=== PATIENT | female | born 1995 | race Caucasian/White ===

== ENCOUNTER 2020-04-23 23:14 | Observation (INO) | payer MEDICAID, SELFPAY ==
--- NOTE | ~2020-04-23 | MR_ITS ---
EXAMINATION: MR abdomen wo con INDICATION: Right lower quadrant pain and leukocytosis during third trimester TECHNIQUE: Coronal SSFSE ARC, Coronal 2D FIESTA Fat Sat, Sagittal SSFSE Fat Sat ARC, Sagittal SD FIES TA Fat Sat, Axial 3D DualEcho, Axial LAVA, Axial STIR, Axial 2D FIESTA Fat Sat, Axial SSFSE ARC COMPARISON: None FINDINGS: The appendix is normal in appearance and measures up to 5 mm. There is no free fluid in the pelvis. There are no dilated loops of bowel. The visualized portions of the left kidney, liver, and spleen are unremarkable. There is decreased cortical T2 signal intensity posteriorly in the right kid kj upper pole of unclear significance. The placenta has a normal appearance without evidence of abru ption or hemorrhage. No definite abnormality is seen with limited evaluation of the fetus. IMPRESSION: 1. Normal appendix. 2. Decreased cortical T2 signal intensity in the upper pole of the right kidney of unclear significan ce. Reviewed, dictated and finalized at location A. IMPRESSION: 1. Normal appendix. 2. Decreased cortical T2 signal intensity in the upper pole of the right kidney of unclear significance.
--- NOTE | ~2020-04-23 | US_ITS ---
EXAMINATION: US OB follow up w BPP EXAM DATE: 04/24/2020 09:45 INDICATION: Abdominal pain. . 3rd trimester. TECHNIQUE: Pelvic obstetrical transabdominal sonogram was performed by a technologist. There are mu ltiple grayscale and Doppler images available for interpretation. There are no earlier studies of th is gestation for comparison. FINDINGS: There is a single fetus identified in vertex presentation with a heart rate of 130 beats pe r minute. The placenta is located in the anterior position. There is no sonographic evidence of retr oplacental hemorrhage identified. The amniotic fluid index is 12.5 centimeters, which is normal. BIOPHYSICAL PROFILE (performed by the technologist) breathing (30 sec sustained breathing in 30 minutes): 2 out of 2 movement (3 gross body movements in 30 minutes): 2 out of 2 tone (one episode of avtibwv-rtpezomga-xvapghi limb movement): 2 out of 2 Amniotic fluid pocket (2 cm): 2 out of 2 Total score: 8 out of 8 IMPRESSION: 1. Single fetus with heart rate of 130 bpm. 2. Normal biophysical profile score of 8 out of 8. Reviewed, dictated and finalized at location A.
--- NOTE | ~2020-04-23 | US_ITS ---
EXAMINATION: US pelvic limited EXAM DATE: 04/24/2020 10:25 INDICATION: Right upper quadrant pain. TECHNIQUE: Multiple grayscale and Doppler images of the pelvis, right lower quadrant were obtained (b y a technologist who performed the scan) and subsequently reviewed. FINDINGS: Scanning in the pelvis, and right lower quadrant both anteriorly and laterally demonstrated no focal sonographic abnormality. Appendix was searched for but not visualized on this exam. Please note that normal appendix is not expected to be visualized by ultrasound. Sometimes an abnormal appendix can be visualized. IMPRESSION: 1. Unremarkable ultrasound exam. Reviewed, dictated and finalized at location A.
[2020-04-23 23:20] VITALS: BP 108/70; PULSE 85; RESP 18; TEMP 36.8; O2SAT 100
--- NOTE | 2020-04-23 23:33 | ED.GENADULT ---
HPI - General Adult General Chief complaint: Headache Stated complaint: du, dizziness Time Seen by Provider: 04/23/20 23:22 Source: RN notes reviewed History of Present Illness HPI narrative: Patient presents emergency department from home for headache. Patient says for the past 2 days she has had a headache nausea and rhinorrhea. Patient states she is presently 32 weeks and followed by [facility] for her . States that over the past 2 days she has been having some intermittent lower abdominal pain described as cramping. Patient states that she was seen by OB 2 days ago and was noted to have high blood pressure at that time. She denies any fevers or chills sore throat cough vomiting vaginal bleeding or any other symptoms at this time. States she is taken no medications today for her symptoms. Patient does states she has a history of migraine headaches Related Data Home Medications Medication Instructions Recorded Confirmed PN cmb#95-ferrous fumarate-FA 1 tablet PO DAILY 04/24/20 04/24/20 [] Allergies Allergy/AdvReac Type Severity Reaction Status Date / Time No Known Allergies Allergy Verified 10/29/19 18:10 Review of Systems Review of Systems: Narrative: Gen.: Denies fevers or chills Eyes: Denies eye pain or visual change ENT: Reports rhinorrhea, denies sore throat Respiratory: Denies shortness of breath or cough CV: Denies chest pain or palpitations GI: Reports some intermittent lower abdominal pain, reports nausea denies any vomiting or diarrhea reports , denies vaginal bleeding Musculoskeletal: Denies back pain or muscle pain Neuro: Denies numbness, tingling, weakness or focal weakness, reports headache Skin: Denies rash Except as documented, all other systems reviewed and negative [facility] Past Medical History Medical History Fracture of both arms Migraines Surgical History Surgical History (Updated 10/31/19 @ 18:30 by Tiffanie Montanez NP) History of tonsillectomy Social History Social History Smoking packs per day: 0.5 Smoking cigarettes per day: 10.0 Years smoked: 5 Smoking pack-years: 2.50 Smoking status: Current every day smoker Exam Narrative: Exam Narrative: APPEARANCE: No acute distress, nontoxic, resting in bed EYES: EOMI HEENT: Normocephalic, atraumatic, bilateral turbinates boggy, oral mucosa moist, no erythema exudate posterior pharynx RESPIRATORY: No respiratory distress Clear to auscultation bilaterally with no rhonchi wheezing or rales. CARDIOVASCULAR: Regular rate and rhythm without murmurs rubs or gallops. ABDOMINAL: Gravid uterus palpated, nontender to palpation, no rebound or guarding MUSCULOSKELETAl: Moves all extremities. No clubbing, cyanosis or edema. NEURO: Awake and alert. Following commands, speech normal, no focal deficits SKIN:: Warm, dry. No rashes lesions or abrasions PSYCHIATRIC: Normal affect/mood, Course Course Emergency Course: Patient states headache is improved but abdominal pain is worsening on the right side. Described as cramping All discussed with Dr. Gonzalez presentation work-up. This time agrees with plan for patient to go to OB for further evaluation With patient plan for evaluation in OB Vital Signs Vital signs: Vital Signs Temperature 98.2 F 04/23/20 23:20 Pulse Rate 85 04/23/20 23:20 Respiratory Rate 18 04/23/20 23:20 Blood Pressure 108/70 04/23/20 23:20 Pulse Oximetry 100 04/23/20 23:20 Temperature 97.9 F 04/24/20 02:30 Pulse Rate 81 04/24/20 02:00 Respiratory Rate 18 04/24/20 00:50 Blood Pressure 103/59 L 04/24/20 02:00 Pulse Oximetry 97 04/24/20 00:50 Medical Decision Making MDM Narrative Medical decision making narrative: Patient's headache was not sudden or maximal in onset. There are no focal deficits on exam. Subarachnoid hemor
[2020-04-23] MEDS: SODIUM CHLORIDE 0.9% IV 1,000 ML 999 ML IV CONT (23:50)
[2020-04-24] VITALS (10 sets, daily range): BP systolic 102–110; BP diastolic 58–67; PULSE 72–90; RESP 18; TEMP 36.4–36.8; O2SAT 97; BMI 27.6
[2020-04-24] LABS: Basophils Absolute Auto 0.1 K/mm3 (0.0-0.1); Basophils Percent Auto 0.4 % (0.2-1.2); Eosinophils Absolute Auto 0.2 K/mm3 (0-0.3); Eosinophils Percent Auto 1.2 % (0-4.4); Hematocrit 32.9 % (37.0-47.0); Hemoglobin 11.4 g/dL (12.0-15.0); Immature Granulocyte Absolute 0.18 K/mm3 (0.00-0.031); Immature Granulocyte Percent A 1.1 % (0-0.5); Lymphocytes Absolute Auto 3.24 K/mm3 (0.9-3.2); Lymphocytes Percent Auto 19.3 % (18.3-44.2); Mean Corpuscular HGB Conc 34.7 g/dl (32-36); Mean Corpuscular Hemoglobin 33.5 pg (26-34); Mean Corpuscular Volume 96.8 fl (80-100); Mean Platelet Volume 9.7 fl (7.4-10.4); Monocytes Absolute Auto 1.4 K/mm3 (0.1-0.6); Monocytes Percent Auto 8.3 % (2.6-8.5); Neutrophils Absolute Auto 11.7 K/mm3 (1.3-6.7); Neutrophils Percent Auto 69.7 % (45.5-73.1); Platelet Count Result 367 k/mm3 (150-375); Red Cell Distribution Width 12.4 % (11.5-14.5); White Blood Count 16.8 K/mm3 (4.5-10.0)
[2020-04-24 00:09] LABS: Alanine Aminotransferase 11 U/L (4-35); Albumin Level 3.7 g/dL (3.5-5.1); Alkaline Phosphatase 68 U/L (38-126); Aspartate Amino Transferase 16 U/L (14-36); Bilirubin,Total 0.2 mg/dL (0.2-1.3); Blood Urea Nitrogen 6 mg/dL (7-17); Calcium 8.6 mg/dL (8.4-10.2); Carbon Dioxide 22 mmol/L (22-30); Chloride 106 mmol/L (98-107); Estimated Glomerular Filt Rate > 60; Glucose 106 mg/dL (65-105); Potassium 3.3 mmol/L (3.4-5.0); Sodium 132 mmol/L (137-145)
[2020-04-24 00:10] LABS: Add Urine Microscopic? YES; Appearance Urine Clear (Clear); Bacteria Urine 1+ /hpf; Bilirubin Urine Negative (Negative); Blood Urine Negative (Negative); Color Urine Yellow (Yellow); Glucose Urine UA 1+ mg/dL (Negative); Ketones Urine Trace mg/dL (Negative); Leukocyte Esterase Ur Trace LEU/UL (Negative); Mucus Urine Heavy /lpf; Nitrate Urine Negative (Negative); Protein Urine 1+ mg/dL (Negative); Specific Grav Ur 1.026 (1.001-1.035); Squamous Epithelial Cell Urine Occasional /hpf (Few)
--- NOTE | 2020-04-24 01:13 | OBADM ---
This patient, Vini Jamison, admitted to the OB room OB Post 116 for observation. Patient/family oriented to hospital policies and general routines including ID bracelet, bed and alarms, visiting hours, pain management, procedures, bathroom and other care routines, personal items, smoking policy, room service/diet, and visiting hours. Patient/Family are encouraged to report perceived risks to care and to ask questions if they do not understand what they are told or what they should do. Pt to room 116 via w/c from ED. Pt c/o abd pain to RLQ for past 45 minutes. Pt came to ED for headache and dizziness/lightheadedness for few days. Pt denies leaking or bleeding. Pt feeling movements.
--- NOTE | 2020-04-24 02:30 | PC.NURSE ---
Pt informed of plan of care. Pt verbalized understanding.
[2020-04-24 06:08] LABS: Basophils Absolute Auto 0.1 K/mm3 (0.0-0.1); Basophils Percent Auto 0.6 % (0.2-1.2); Eosinophils Absolute Auto 0.3 K/mm3 (0-0.3); Eosinophils Percent Auto 1.9 % (0-4.4); Hematocrit 30.3 % (37.0-47.0); Hemoglobin 10.4 g/dL (12.0-15.0); Immature Granulocyte Absolute 0.14 K/mm3 (0.00-0.031); Immature Granulocyte Percent A 0.8 % (0-0.5); Lymphocytes Absolute Auto 3.98 K/mm3 (0.9-3.2); Lymphocytes Percent Auto 22.5 % (18.3-44.2); Mean Corpuscular HGB Conc 34.3 g/dl (32-36); Mean Corpuscular Hemoglobin 33.4 pg (26-34); Mean Corpuscular Volume 97.4 fl (80-100); Mean Platelet Volume 9.7 fl (7.4-10.4); Monocytes Absolute Auto 1.6 K/mm3 (0.1-0.6); Monocytes Percent Auto 8.8 % (2.6-8.5); Neutrophils Absolute Auto 11.6 K/mm3 (1.3-6.7); Neutrophils Percent Auto 65.4 % (45.5-73.1); Platelet Count Result 305 k/mm3 (150-375); Red Blood Count 3.11 M/mm3 (4.2-5.4); Red Cell Distribution Width 12.4 % (11.5-14.5); White Blood Count 17.7 K/mm3 (4.5-10.0)
--- NOTE | 2020-04-24 08:54 | PM.IMHP ---
H&P: HPI History of Present Illness Chief complaint: du, dizziness Narrative: Vini Jamison is a 25 year old female who presented to the ER last night with c/o headache, nausea, and right side abdominal cramping. Pt states these symptoms have been present for 2 days. Denies vomiting or diarrhea. Review of Systems Review of Systems: All systems reviewed & are unremarkable except as noted in HPI and below PMFSH Past Medical History Medical History Fracture of both arms Migraines Surgical History Surgical History History of tonsillectomy Social History Social History Smoking packs per day: 0.5 Smoking cigarettes per day: 10.0 Years smoked: 5 Smoking pack-years: 2.50 Smoking status: Current every day smoker Meds Home Medications and Allergies Home Medications Medication Instructions Recorded Confirmed Type PNV cmb#95-ferrous fumarate-FA 1 tablet PO DAILY 04/24/20 04/24/20 History [] Allergies Allergy/AdvReac Type Severity Reaction Status Date / Time No Known Allergies Allergy Verified 10/29/19 18:10 Vital Signs Vital Signs - 24 hr 04/23/20 23:20 04/24/20 00:50 04/24/20 01:08 Temperature 98.2 F Pulse Rate 85 78 80 Respiratory Rate 18 18 Blood Pressure 108/70 104/62 110/64 Pulse Oximetry 100 97 04/24/20 01:21 04/24/20 02:00 04/24/20 02:30 Temperature 97.6 F 97.9 F Pulse Rate 81 Respiratory Rate Blood Pressure 103/59 L Pulse Oximetry 04/24/20 05:56 04/24/20 08:23 Temperature 97.6 F Pulse Rate 90 Respiratory Rate Blood Pressure 102/66 Pulse Oximetry Exam Const: General: cooperative, no acute distress and alert Resp: Effort & Inspection: normal respiratory effort and able to speak in complete sentences Auscultation: clear to auscultation bilaterally GI: Inspection: normal to inspection (Gravid) GI Palp: Yes abdominal tenderness (RLQ tender with palpation) and Yes Rebound tenderness present : Manual OB Exam: Deferred manual OB exam Skin: General skin exam: normal color Neuro: General: oriented to person, oriented to place and oriented to time H&P: Results Labs Labs: Short CBC 04/23/20 04/24/20 Range/Units 23:47 06:02 WBC 16.8 H 17.7 H (4.5-10.0) K/mm3 Hgb 11.4 L 10.4 L (12.0-15.0) g/dL Hct 32.9 L 30.3 L (37.0-47.0) % Plt Count 367 305 (150-375) k/mm3 BMP 04/23/20 23:47 Sodium 132 L Potassium 3.3 L Chloride 106 Carbon Dioxide 22 BUN 6 L Creatinine 0.40 L Glucose 106 H Calcium 8.6 Liver Function 04/23/20 Range/Units 23:47 Total Bilirubin 0.2 (0.2-1.3) mg/dL AST 16 (14-36) U/L ALT 11 (4-35) U/L Alkaline Phosphatase 68 (38-126) U/L Albumin 3.7 (3.5-5.1) g/dL Urine 04/23/20 Range/Units 23:47 Urine Color Yellow (Yellow) Urine Appearance Clear (Clear) Urine pH 6.0 (5.0-9.0) Ur Specific [place] 1.026 (1.001-1.035) Urine Protein 1+ H (Negative) mg/dL Urine Glucose (UA) 1+ H (Negative) mg/dL Assessment and Plan Additional Plan 25 y/o 32 weeks with lower right abdominal tenderness. She is afebrile. WBC initially elevated and did increase over the last [address] . [address] with Dr Gonzalez and we have agreed to a surgical consult. H/A has resolved. Will remain NPO at this time.
--- NOTE | 2020-04-24 13:45 | PM.CNGS ---
Assessment and Plan Assessment and plan (1) Abdominal pain: Code(s): R10.9 - Unspecified abdominal pain Status: Acute Assessment and Plan: will get MR, as recommended by radiology, for further review, exam equivocal (2) : Qualifiers: Weeks of gestation: less than 8 weeks Qualified Code(s): Z3A.01 - Less than 8 weeks gestation of Code(s): Z34.90 - Encounter for supervision of normal , unspecified, unspecified trimester Status: Acute Assessment and Plan: 32 weeks, normal findings, mgmt per OB History of Present Illness Consult details Consult date: 04/24/20 Reason for consult: abdominal pain Requesting physician: Rod Gonzalez MD Narrative: Patient is a 25-year-old female, currently 32 weeks , presenting with a 1 day history of right lower quadrant abdominal pain. Patient reports that the pain is dull and constant, measuring anywhere from 2-4 in intensity out of 10. Patient denies any other associated symptoms, including fevers and chills, anorexia, nausea and vomiting. Patient denies any vaginal bleeding or discharge. Review of Systems Constitutional: Constitutional: Denies weakness Eyes: Eyes: Reports no additional eye complaints and Denies loss of vision ENT: Reports Normal hearing present, Denies dysphagia, Denies headache(s), Denies hearing loss and Denies sore throat Cardiovascular: Cardiovascular: Denies chest pain, Denies syncope, Denies irregular heart rhythm, Denies leg edema and Denies dyspnea Respiratory: Respiratory: Denies cough and Denies dyspnea Gastrointestinal: Gastrointestinal: Reports abdominal pain, Denies bloating, Denies change in bowel habits, Denies change in stool character, Denies constipation, Denies dysphagia, Denies heartburn, Denies diarrhea, Denies nausea and Denies vomiting Genitourinary: Genitourinary: Denies urinary frequency, Denies dysuria and Denies urinary urgency Musculoskeletal: Musculoskeletal: Denies myalgias, Denies arthralgias and Denies muscle cramps Integumentary/Breasts: Skin/Breast: Denies non-healing lesions and Denies rash Neurologic: Denies syncope, Denies headache(s) and Denies loss of vision Endocrine: Endocrine: Denies change in body appearance and Denies fatigue Hematologic/Lymphatic: Hematologic/Lymphatic: Denies easy bleeding, Denies easy bruising and Denies lymphadenopathy PMFSH Past Medical History Medical History Fracture of both arms Migraines Surgical History Surgical History History of tonsillectomy Social History Social History Smoking packs per day: 0.5 Smoking cigarettes per day: 10.0 Years smoked: 5 Smoking pack-years: 2.50 Smoking status: Current every day smoker Meds Home Medications and Allergies Home Medications Medication Instructions Recorded Confirmed Type PNV cmb#95-ferrous fumarate-FA 1 tablet PO DAILY 04/24/20 04/24/20 History [] Allergies Allergy/AdvReac Type Severity Reaction Status Date / Time No Known Allergies Allergy Verified 10/29/19 18:10 Vital Signs Vital Signs - 24 hr 04/23/20 23:20 04/24/20 00:50 04/24/20 01:08 Temperature 36.8 C Pulse Rate 85 78 80 Respiratory Rate 18 18 Blood Pressure 108/70 104/62 110/64 Pulse Oximetry 100 97 04/24/20 01:21 04/24/20 02:00 04/24/20 02:30 Temperature 36.4 C 36.6 C Pulse Rate 81 Respiratory Rate Blood Pressure 103/59 L Pulse Oximetry 04/24/20 05:56 04/24/20 08:23 04/24/20 11:58 Temperature 36.4 C 36.6 C 36.7 C Pulse Rate 90 79 Respiratory Rate Blood Pressure 102/66 104/58 L Pulse Oximetry Exam Const: General: cooperative, no acute distress and well developed Orientation/consciousness: patient oriented x3 HENMT: Head: normocephalic and atraum
[2020-04-24 16:23] LABS: Hematocrit 33.1 % (37.0-47.0); Hemoglobin 11.3 g/dL (12.0-15.0); Mean Corpuscular HGB Conc 34.1 g/dl (32-36); Mean Corpuscular Hemoglobin 33.6 pg (26-34); Mean Corpuscular Volume 98.5 fl (80-100); Mean Platelet Volume 9.6 fl (7.4-10.4); Platelet Count Result 328 k/mm3 (150-375); Red Blood Count 3.36 M/mm3 (4.2-5.4); Red Cell Distribution Width 12.6 % (11.5-14.5); White Blood Count 16.3 K/mm3 (4.5-10.0)
--- NOTE | 2020-05-21 21:35 | PM.OBTRLD ---
OB - Triage/Final Diagnosis Evaluation Laboratory results: Laboratory Tests 04/23/20 04/23/20 04/23/20 23:47 23:47 23:47 WBC 16.8 H RBC 3.40 L Hgb 11.4 L Hct 32.9 L MCV 96.8 MCH 33.5 MCHC 34.7 RDW 12.4 Plt Count 367 MPV 9.7 Immature Gran % (Auto) 1.1 H Neut % (Auto) 69.7 Lymph % (Auto) 19.3 [place] % (Auto) 8.3 Eos % (Auto) 1.2 Baso % (Auto) 0.4 Lymph # (Auto) 3.24 H [place] # (Auto) 1.4 H Eos # (Auto) 0.2 Baso # (Auto) 0.1 Abs Immat Gran (auto) 0.18 H Absolute Neuts (auto) 11.7 H Absolute Nucleated RBC 0.0 Nucleated RBC % 0.0 Sodium 132 L Potassium 3.3 L Chloride 106 Carbon Dioxide 22 BUN 6 L Creatinine 0.40 L Estim Creat Clear Calc Not Reportable Estimated GFR > 60 Glucose 106 H Calcium 8.6 Total Bilirubin 0.2 AST 16 ALT 11 Alkaline Phosphatase 68 Total Protein 7.0 Albumin 3.7 Urine Color Yellow Urine Appearance Clear Urine pH 6.0 Ur Specific [place] 1.026 Urine Protein 1+ H Urine Glucose (UA) 1+ H Urine Ketones Trace Ur Blood (Man) Negative Urine Nitrate Negative Urine Bilirubin Negative Urine Urobilinogen 2.0 H Leukocyte Esterase Rfl Trace H Urine RBC 3-5 H Urine WBC 10-15 H Ur Squamous Epith Cells Occasional Urine Bacteria 1+ H Hyaline Casts 1-2 Urine Mucus Heavy H 04/24/20 04/24/20 06:02 16:16 WBC 17.7 H 16.3 H RBC 3.11 L 3.36 L Hgb 10.4 L 11.3 L Hct 30.3 L 33.1 L MCV 97.4 98.5 MCH 33.4 33.6 MCHC 34.3 34.1 RDW 12.4 12.6 Plt Count 305 328 MPV 9.7 9.6 Immature Gran % (Auto) 0.8 H Neut % (Auto) 65.4 Lymph % (Auto) 22.5 [place] % (Auto) 8.8 H Eos % (Auto) 1.9 Baso % (Auto) 0.6 Lymph # (Auto) 3.98 H [place] # (Auto) 1.6 H Eos # (Auto) 0.3 Baso # (Auto) 0.1 Abs Immat Gran (auto) 0.14 H Absolute Neuts (auto) 11.6 H Absolute Nucleated RBC 0.0 Nucleated RBC % 0.0 Sodium Potassium Chloride Carbon Dioxide BUN Creatinine Estim Creat Clear Calc Estimated GFR Glucose Calcium Total Bilirubin AST ALT Alkaline Phosphatase Total Protein Albumin Urine Color Urine Appearance Urine pH Ur Specific [place] Urine Protein Urine Glucose (UA) Urine Ketones Ur Blood (Man) Urine Nitrate Urine Bilirubin Urine Urobilinogen Leukocyte Esterase Rfl Urine RBC Urine WBC Ur Squamous Epith Cells Urine Bacteria Hyaline Casts Urine Mucus Final Diagnosis (1) Abdominal pain: Code(s): R10.9 - Unspecified abdominal pain Status: Acute
--- NOTE | 2020-06-16 09:48 | P.DS_ITS ---
DS: Admitting Diagnosis Admitting Diagnosis Admitting Diagnosis: du, dizziness, rlq pain DS: Discharge Diagnosis Discharge Diagnosis (1) Abdominal pain: Code(s): R10.9 - Unspecified abdominal pain Status: Acute OB - DS: Summary Hospital Course Time spent discussing smoking cessation with patient: more than 10 minutes OB Procedures : None OB Procedures Intrapartum: Other OB Procedures: : None Status at Discharge Functional status at discharge: independent ambulation Time Spent with Patient Time attestation: Total time spent providing and/or coordinating discharge services: Exam Const: General: comfortable and no acute distress Psych: Appearance: grossly normal Affect: normal affect Thought content: Yes Normal thought content present Judgement: Good judgement present (Psych) Discharge Plan Discharge Attending physician on discharge: Shani Berg Consulting providers: Nathalia Borjas ; Shani Berg ; Mau Alicea ; Patrice Hull Discharging Clinician: Shani Berg Anticipated Discharge Date/Time: 04/24/20 17:30 Patient Disposition: Home, Self-Care Activity: as tolerated Diet: as tolerated Stand Alone Forms: General Discharge Information, Work/School Release IP Follow-up/Referrals: Shani Berg, CNM [Certified Nurse Registered Respiratory Technician] - Discharge Medications: Continued PNV cmb#95-ferrous fumarate-FA [] 28 mg iron- 800 mcg Tablet 1 tablet PO DAILY RF: 0 No Action ibuprofen 600 mg Tablet 600 mg PO Q6H PRN (Reason: Cramping) Qty: 60 RF: 0 Date of admission: 04/24/20 00:56 Primary Care Provider: PHYSICIAN,BORDER INSPECTOR Admitting Provider: Rod Gonzalez Discharge Date/Time: 04/24/20 17:30 Attending physician on admission: Rod Gonzalez Condition: Stable
== END 2020-04-24 17:30 | disposition home or self-care (01) ==
LOC: ANHED 04-24 00:55 → ANHOBPP 04-24 00:56
PROVIDERS: Advanced Practice Midwife; Admitting Provider Obstetrics & Gynecology; Emergency Provider Emergency Medicine; Visit Provider Obstetrics & Gynecology
DX: O26.893 Other specified pregnancy related conditions, third trimester (principal); R10.813 Right lower quadrant abdominal tenderness; R51 Headache; O99.333 Smoking (tobacco) complicating pregnancy, third trimester; F17.210 Nicotine dependence, cigarettes, uncomplicated; Z3A.32 32 weeks gestation of pregnancy
CPT/HCPCS: 36415; 74181; 76816; 76819; 76857; 80053; 81001; 85025; 85027; 87086; 96360; 96361; 96374; 99285; G0378; G0379; J0131; J7030

== ENCOUNTER 2020-06-07 06:12 | Inpatient (IN) | payer MEDICAID, SELFPAY ==
[2020-06-07] VITALS (148 sets, daily range): BP systolic 64–135; BP diastolic 23–90; PULSE 56–173; TEMP 36.2–36.8; O2SAT 91–100
[2020-06-07 07:15] LABS: Basophils Absolute Auto 0.1 K/mm3 (0.0-0.1); Basophils Percent Auto 0.5 % (0.2-1.2); Eosinophils Absolute Auto 0.3 K/mm3 (0-0.3); Eosinophils Percent Auto 1.5 % (0-4.4); Hematocrit 32.2 % (37.0-47.0); Hemoglobin 11.1 g/dL (12.0-15.0); Immature Granulocyte Absolute 0.35 K/mm3 (0.00-0.031); Immature Granulocyte Percent A 1.9 % (0-0.5); Lymphocytes Absolute Auto 3.38 K/mm3 (0.9-3.2); Lymphocytes Percent Auto 18.2 % (18.3-44.2); Mean Corpuscular HGB Conc 34.5 g/dl (32-36); Mean Corpuscular Hemoglobin 33.1 pg (26-34); Mean Corpuscular Volume 96.1 fl (80-100); Mean Platelet Volume 10.2 fl (7.4-10.4); Monocytes Absolute Auto 1.8 K/mm3 (0.1-0.6); Monocytes Percent Auto 9.7 % (2.6-8.5); Neutrophils Absolute Auto 12.7 K/mm3 (1.3-6.7); Neutrophils Percent Auto 68.2 % (45.5-73.1); Platelet Count Result 350 k/mm3 (150-375); Red Blood Count 3.35 M/mm3 (4.2-5.4); White Blood Count 18.6 K/mm3 (4.5-10.0)
--- NOTE | 2020-06-07 07:22 | WPDHPUPDATE1 ---
History and Physical Update Update Date/Time: 06/07/20 07:22 This patient is a 25-year-old 1 at 39 weeks gestation presents for elective induction of labor. Artificial rupture of membranes was performed. There is clear fluid. Her cervix is 2/ 20%/ -3. She has reassuring heart tones. History and Physical has been reviewed, including an updated exam of the patient. There are NO changes in the patient's condition. Risks, benefits, and alternatives have been discussed and questions answered. Patient agrees to proceed with procedure.
--- NOTE | 2020-06-07 07:26 | LDADM ---
This patient, Vini Jamison, was admitted to Labor/Delivery/Recovery 105 on 06/07/20 at 06:12. Plans for labor, pain management and were discussed with patient. Patient/family oriented to hospital policies and general routines including ID bracelet, bed and alarms, visiting hours, pain management, procedures, bathroom and other care routines, personal items, smoking policy, room service/diet and guest tray routines, security routines, and visiting hours. Patient/Family are encouraged to report perceived risks to care and to ask questions if they do not understand what they are told or what they should do. See OBIX for further documentation.
[2020-06-07] MEDS: LACTATED RINGERS 1,000 ML 125 ML IV CONT ×2 (07:58→20:13)
[2020-06-07] MEDS: OXYTOCIN 30 UNITS/NS 500 ML 30 UNITS/500 ML BAG 6 UNITS IV CONT (07:59)
--- NOTE | 2020-06-07 09:04 | P.PNAN_ITS ---
Anes - Eval Pre Procedure Procedure: labor epidural Date/Time: 06/07/20 09:04 Surgeon: Lisa Preop Diagnosis: Pain during labor Pre Op Diagnosis: Induction of Labor Patient Data Age: 25 Gender: F Height: Weight: Last Vital Signs Pulse 81 06/07/20 09:01 BP 94/53 L 06/07/20 09:01 Allergies Allergy/AdvReac Type Severity Reaction Status Date / Time No Known Allergies Allergy Verified 10/29/19 18:10 Home Medications Medication Instructions Recorded Confirmed Type PNV cmb#95-ferrous fumarate-FA 1 tablet PO DAILY 04/24/20 06/03/20 History [] Laboratory Tests 06/07/20 06/07/20 06/07/20 07:03 07:03 07:03 WBC 18.6 K/mm3 H K/mm3 (4.5-10.0) RBC 3.35 M/mm3 L M/mm3 (4.2-5.4) Hgb 11.1 g/dL L g/dL (12.0-15.0) Hct 32.2 % L % (37.0-47.0) MCV 96.1 fl fl (80-100) MCH 33.1 pg pg (26-34) MCHC 34.5 g/dl g/dl (32-36) RDW 13.0 % % (11.5-14.5) Plt Count 350 k/mm3 k/mm3 (150-375) MPV 10.2 fl fl (7.4-10.4) Immature Gran % (Auto) 1.9 % H % (0-0.5) Neut % (Auto) 68.2 % % (45.5-73.1) Lymph % (Auto) 18.2 % L % (18.3-44.2) [place] % (Auto) 9.7 % H % (2.6-8.5) Eos % (Auto) 1.5 % % (0-4.4) Baso % (Auto) 0.5 % % (0.2-1.2) Lymph # (Auto) 3.38 K/mm3 H K/mm3 (0.9-3.2) [place] # (Auto) 1.8 K/mm3 H K/mm3 (0.1-0.6) Eos # (Auto) 0.3 K/mm3 K/mm3 (0-0.3) Baso # (Auto) 0.1 K/mm3 K/mm3 (0.0-0.1) Abs Immat Gran (auto) 0.35 K/mm3 H K/mm3 (0.00-0.031) Absolute Neuts (auto) 12.7 K/mm3 H K/mm3 (1.3-6.7) Absolute Nucleated RBC 0.0 K/mm3 K/mm3 (0.0-0.012) Nucleated RBC % 0.0 % % (0.0-0.2) RPR Pending Blood Type B Positive Antibody Screen Negative Patient hx anesthesia problems: none Family hx anesthesia problems: none PMFSH Past Medical History Medical History Fracture of both arms Migraines Surgical History Surgical History History of tonsillectomy Family History Family History Grandparent Thyroid disease Grandparent Diabetes mellitus Social History Social History Smoking packs per day: 0.5 Smoking cigarettes per day: 10.0 Years smoked: 5 Smoking pack-years: 2.50 Smoking status: Current every day smoker Tobacco type: cigarettes Substance use: never Gender identity (if verbalized by the patient): Female Spiritual care concerns: No Exam Day of Procedure 06/07/20 09:04
--- NOTE | 2020-06-07 22:17 | P.PCNOB_ITS ---
OB - Delivery Note Procedure Delivery date: 06/07/20 Procedure: vaginal delivery Induction method: AROM and per pitocin protocol Delivery monitor: external FHT and external uterine Laceration description: Perineal - 1st Degree Delivery repair: vicryl Specimen: No Estimated blood loss (mL): 145 Anesthesia type: Epidural Disposition: other () [place] Baby Date of : 06/07/20 Time of : 22:06 Weeks of gestation at delivery: 39 gender: Female Weight (pounds): 6 Weight (ounces): 8 presentation: vertex position: Right Occiput Anterior Placenta delivery description: Spontaneous cord vessel description: 3 Vessels, Nuchal Cord, Loose, Reduced, Clamped/Cut and Around Body x1 score one minute: 9 score five minutes: 10 Narrative: mother and baby skin to skin in stable condition
[2020-06-07] MEDS: OXYTOCIN 30 UNITS/NS 500 ML 30 UNITS/500 ML BAG 125 UNITS IV CONT (22:27)
[2020-06-08 00:01] VITALS: BP 113/70; PULSE 86
[2020-06-08 00:16] VITALS: BP 111/65; PULSE 79
[2020-06-08] MEDS: BENZOCAINE 20% AER SPR (*SP) 56 GM CAN 1 SPRAY TOPICAL (00:19)
[2020-06-08] MEDS: WITCH HAZEL 40 PADS 1 PAD TOPICAL (00:19)
[2020-06-08] MEDS: IBUPROFEN 600 MG TABLET PO ×2 (00:19→17:15)
--- NOTE | 2020-06-08 00:41 | PC.NURSE ---
This patient, Vini Jamison, was received from Labor and Delivery on 06/08/20 at 0038. Personal belongings list checked and signed. Patient/family oriented to unit policies and routines
[2020-06-08 00:45] VITALS: BP 112/74; PULSE 82; RESP 16; TEMP 37; O2SAT 100
[2020-06-08 05:05] LABS: Hematocrit 28.2 % (37.0-47.0); Hemoglobin 9.6 g/dL (12.0-15.0)
--- NOTE | 2020-06-08 07:52 | PM.OBPNVD ---
OB - PN: Subj Subjective Date/time seen: 06/08/20 07:52 OB - PN: Obj Data Labs CBC & Chem 7: 06/08/20 04:59 Labs: Laboratory Results - last 24 hr 06/07/20 06/08/20 07:03 04:59 Hgb 9.6 L Hct 28.2 L Blood Type B Positive Antibody Screen Negative OB - PN A/P Plan day: 1 Plan: routine care Time Spent With Patient Time: Total time spent is greater than 50% in coordination of care (as documented) at patient's floor/unit and/or counseling patient: Time with patient: less than 15 minutes Review of Systems Review of Systems: All systems reviewed & are unremarkable except as noted in HPI and below Exam Narrative: Exam Narrative: Fundus firm and vaginal flow controlled.
--- NOTE | 2020-06-08 07:55 | WPDANLDPN2 ---
Anes-Prog Note L&D Date/Time: 06/08/20 07:55 Comfortable throughout: labor and delivery Neuraxial method: epidural Epidural/Spinal procedure site: clean & non-tender Neuro status: Neuro function grossly intact. Cardiovascular status: normal Respiratory status: normal Airway patency: baseline Mental status: baseline Post-Op hydration status: normal Vital Signs: Last Vital Signs Temp 37.0 C 06/08/20 00:45 Pulse 82 06/08/20 00:45 Resp 16 06/08/20 00:45 BP 112/74 06/08/20 00:45 Pulse Ox 100 06/08/20 00:45 I/O: Intake & Output 06/07/20 06/07/20 06/08/20 15:59 23:59 07:59 Intake Total 1000 Output Total 93 Balance 1000 -93 Post-procedural complaints: none Patient feedback: Patient satisfied with anesthetic care.
[2020-06-08 08:05] VITALS: BP 100/60; PULSE 76; RESP 16; TEMP 36.6; O2SAT 100
[2020-06-08] MEDS: POLYSACCHARIDE IRON COMPLEX 150 MG CAPSULE PO ×2 (09:07→17:13)
[2020-06-08] MEDS: MULTIVIT/MIN/PREN/FOL AC/IRON TABLET 1 TAB PO (09:07)
[2020-06-08] MEDS: DOCUSATE SODIUM 100 MG CAPSULE PO ×2 (09:07→17:13)
[2020-06-08 09:44] LABS: Rapid Plasma Reagin Non-Reactive (NonReactive)
--- NOTE | 2020-06-08 12:10 | PC.NURSE ---
Consulted with patient, Mother reports she is breast and bottle feeding. Mother states she has difficulties with latching and does not believe is getting enough with and will supplement until her milk is in. Reviewed feeding cues, frequencies, duration of feedings, feeding elimination flow sheet, and signs of adequate intake. Offered assist with next feeding, requested mother to call out for RN/LC assistance with feeding. Instructed feeding should be initiated three hours from start of last feeding or if feeding cues are noted before. Mother voiced understanding of information shared.
[2020-06-08 20:00] VITALS: BP 109/68; PULSE 86; RESP 16; TEMP 36.4; O2SAT 99
--- NOTE | 2020-06-09 07:37 | PM.OBPNVD ---
OB - PN: Subj Subjective Date/time seen: 06/09/20 07:37 Patient comments: no complaints, pain well controlled and other (Lochia similar to menses) [facility] baby status: doing well OB - PN: Obj Data Labs CBC & Chem 7: 06/08/20 04:59 Labs: Laboratory Results - last 24 hr 06/07/20 07:03 RPR Non-reactive OB - PN A/P Plan day: 2 (s/p vaginal delivery, doing well) Plan: routine care, discharge home and other (Follow up in office in 4 weeks) Time Spent With Patient Time: Total time spent is greater than 50% in coordination of care (as documented) at patient's floor/unit and/or counseling patient: Exam Const: General: no acute distress GI: Inspection: other (Fundus firm and nontender below umbilicus) GI Palp: Yes Soft to palpation and No Tenderness to palpation present (GI) Extrem: General: no edema
[2020-06-09] MEDS: DOCUSATE SODIUM 100 MG CAPSULE PO (07:45)
[2020-06-09] MEDS: MULTIVIT/MIN/PREN/FOL AC/IRON TABLET 1 TAB PO (07:45)
[2020-06-09] MEDS: POLYSACCHARIDE IRON COMPLEX 150 MG CAPSULE PO (07:45)
[2020-06-09 07:55] VITALS: BP 102/67; PULSE 73; RESP 18; TEMP 36.8; O2SAT 100
--- NOTE | 2020-06-09 07:59 | PC.NURSE ---
Patient viewed the discharge video Mother & Baby Care, The First Two Weeks . Patient was given the opportunity and encouraged to ask questions. Patient verbalized understanding of information shared and has been given the mother/baby guide for home reference.
--- NOTE | 2020-06-09 11:25 | PC.NURSE ---
11:14-F/U appointment made for 06/10/20 @ 10:00 for mother only. No F/U appointment made for baby since baby will be seen by Dr. Wolf 06/10/20 at 11:00.
--- NOTE | 2020-06-10 07:15 | PM.OBTRLD ---
OB - Triage/Final Diagnosis Evaluation Laboratory results: Laboratory Tests 06/07/20 06/07/20 06/07/20 07:03 07:03 07:03 WBC 18.6 H RBC 3.35 L Hgb 11.1 L Hct 32.2 L MCV 96.1 MCH 33.1 MCHC 34.5 RDW 13.0 Plt Count 350 MPV 10.2 Immature Gran % (Auto) 1.9 H Neut % (Auto) 68.2 Lymph % (Auto) 18.2 L [place] % (Auto) 9.7 H Eos % (Auto) 1.5 Baso % (Auto) 0.5 Lymph # (Auto) 3.38 H [place] # (Auto) 1.8 H Eos # (Auto) 0.3 Baso # (Auto) 0.1 Abs Immat Gran (auto) 0.35 H Absolute Neuts (auto) 12.7 H Absolute Nucleated RBC 0.0 Nucleated RBC % 0.0 RPR Non-reactive Blood Type B Positive Antibody Screen Negative 06/08/20 04:59 WBC RBC Hgb 9.6 L Hct 28.2 L MCV MCH MCHC RDW Plt Count MPV Immature Gran % (Auto) Neut % (Auto) Lymph % (Auto) [place] % (Auto) Eos % (Auto) Baso % (Auto) Lymph # (Auto) [place] # (Auto) Eos # (Auto) Baso # (Auto) Abs Immat Gran (auto) Absolute Neuts (auto) Absolute Nucleated RBC Nucleated RBC % RPR Blood Type Antibody Screen Vital signs: Vital Signs - 24 hr 06/09/20 07:55 Temperature 36.8 C Pulse Rate 73 Respiratory Rate 18 Blood Pressure 102/67 Pulse Oximetry 100
[2020-06-10 10:02] VITALS: BP 108/65; PULSE 90; RESP 20; TEMP 36.7; O2SAT 100
--- NOTE | 2020-06-12 18:50 | P.DS_ITS ---
DS: Admitting Diagnosis Admitting Diagnosis Admitting Diagnosis: Induction of Labor OB - DS: Summary OB Procedures : None OB Procedures Intrapartum: Spontaneous Vag Delivery OB Procedures: : None Time Spent with Patient Time attestation: Total time spent providing and/or coordinating discharge services: Discharge Plan Discharge Attending physician on discharge: Rod Gonzalez Consulting providers: Christina Castillo ; Shani Berg Discharging Clinician: Estrellita Wagoner Patient Disposition: Home, Self-Care Activity: may shower and pelvic rest Diet: regular Discharge Instructions: Education: Mom and Baby Guide Given to: Mother Follow-Up: Call your delivering provider's office for an appointment to be seen in: 4 Weeks Mom and baby should come to the [facility] for the follow-up appointment. Appointment Date/Time: Wednesday, June 10, 2020 at 10:00 am What to expect at your follow-up visit: Blood Pressure Check Physical Assessment Call [phone] if you are unable to keep your appointment time. BREAST CARE: * Wear a snug supportive bra. * For engorgement discomfort: Bottle Feeding: * May apply ice packs EPISIOTOMY/PERINEAL CARE: * Until bleeding stops, use your alfonso bottle after urinating * Change your pad frequently throughout the day * You may take sitz baths several times a day (fill your bathtub with warm water and soak for 20 minutes.) Do NOT bathe in the water * No tub baths until seen by your physician - You may shower ACTIVITY: * Rest as much as possible. * Do not exercise or lift anything heavier than your baby (such as laundry or other children.) * Avoid stairs or driving as much as possible. * Do not put anything into the vagina. No douching, tampons, or sexual activity until seen by physician. NOTIFY PHYSICIAN IF YOU HAVE ANY QUESTIONS OR IF ANY OF THE FOLLOWING SYMPTOMS OCCUR: * If your perineum becomes red, swollen, or more painful than what you have experienced in the hospital. * If your vaginal bleeding becomes foul smelling. * If your vaginal bleeding becomes more heavy than a period or if your bleeding changes from pink to bright red. However, you may pass an occasional walnut- sized clot once or twice for the first week . * If you experience a sharp, shooting pain in you calves. * If you discover a hard, reddened area on your breast or if you experience flu- like symptoms. DIET: * Eat regular, well-balanced meals. * Drink plenty of fluids daily. Patient Instructions: How to Stop Smoking (DC) Stand Alone Forms: General Discharge Information Follow-up/Referrals: Christina Castillo CNM [Certified Nurse Obstetrics Tech] - 4 Weeks Discharge Medications: New ibuprofen 600 mg Tablet 600 mg PO Q6H PRN (Reason: Cramping) Qty: 60 RF: 0 Continued PNV cmb#95-ferrous fumarate-FA [] 28 mg iron- 800 mcg Tablet 1 tablet PO DAILY RF: 0 Date of admission: 06/07/20 06:12 Primary Care Provider: PHYSICIAN,COATING AND BAKING OPERATOR Admitting Provider: Rod Gonzalez Discharge Date/Time: 06/09/20 12:12 Attending physician on admission: Estrellita Wagoner
== END 2020-06-09 12:12 | disposition home or self-care (01) | DRG 560 ==
LOC: ANHOB2 06-09 08:44 → ANHLDR 06-10 09:55 → ANHOB2 06-10 09:55
PROVIDERS: Advanced Practice Midwife; Admitting Provider Obstetrics & Gynecology; Visit Provider Obstetrics & Gynecology
DX: O69.82X0 Labor and delivery complicated by other cord entanglement, without compression, not applicable or unspecified (principal); Z37.0 Single live birth; Z3A.39 39 weeks gestation of pregnancy; O70.0 First degree perineal laceration during delivery
CPT/HCPCS: 36415; 85014; 85018; 85025; 86592; 86850; 86900; 86901; A9270; J2590; J2795; J7120

== ENCOUNTER 2020-09-09 08:55 | Emergency (ER) | payer MEDICAID, SELFPAY ==
[2020-09-09 09:00] VITALS: BP 129/82; PULSE 71; RESP 16; TEMP 36.9; O2SAT 100
--- NOTE | 2020-09-09 09:33 | ED.GENADULT ---
HPI - General Adult General Chief complaint: Dental/Oral Stated complaint: tooth pain Time Seen by Provider: 09/09/20 09:33 Source: patient Mode of arrival: ambulatory Limitations: no limitations History of Present Illness HPI narrative: 25-year-old female patient presents to the [facility] with complaints of dental pain to the right side for the past 2 to 3 days with swelling since yesterday that has gotten increasingly worse when she woke up this morning. Patient states she does have some bad teeth and states that she has been trying to get into a dentist however due to the fact that she does not have dental insurance and with the Covid it is been extremely difficult. Patient states she is been taking Tylenol and ibuprofen for the pain with out much relief. Denies any fevers, body aches or chills. Denies any or breast-feeding at this time. Related Data Allergies Allergy/AdvReac Type Severity Reaction Status Date / Time No Known Allergies Allergy Verified 09/09/20 09:23 Review of Systems Review of Systems: Narrative: CONSTITUTIONAL: Denies fever, chills, or sweats. EYES: Denies visual changes, redness, or discharge. ENT: Denies rhinorrhea, congestion, sore throat, or otalgia. Positive swelling to the right cheek with right lower dental pain x3 to 4 days CARDIOVASCULAR: Denies chest pain, palpitations, or edema. RESPIRATORY: Denies cough or dyspnea. GASTROINTESTINAL: Denies abdominal pain, nausea, vomiting, or diarrhea. GENITOURINARY: Denies dysuria or hematuria. SKIN: Denies rash or itching. MUSCULOSKELETAL: Denies back pain, joint pain, or myalgia. NEUROLOGIC: Denies headache, numbness, or weakness. PSYCHIATRIC: Denies anxiety or depression. [facility] Past Medical History Medical History (Updated 09/09/20 @ 09:42 by MINO Naylor) Fracture of both arms Migraines Surgical History Surgical History History of tonsillectomy Family History Family History Grandparent Thyroid disease Grandparent Diabetes mellitus Social History Social History Smoking packs per day: 0.5 Smoking cigarettes per day: 10.0 Years smoked: 5 Smoking pack-years: 2.50 Smoking status: Current every day smoker Tobacco type: cigarettes Substance use: never Gender identity (if verbalized by the patient): Female Spiritual care concerns: No Comments At the time of my signature I agree with nursing past medical history, surgical, social, and family history. There is no relevant family history pertinent to the presenting complaint. Exam Narrative: Exam Narrative: GENERAL: Well-appearing, well-nourished, and in no acute distress. HEAD: Normocephalic, atraumatic. EYES: PERRLA and EOMI. ENT: Nares clear, no rhinorrhea or epistaxis. Mucous membranes moist. Patient does have significant swelling noted to the right cheek but no warmth present. On examination of the oral cavity the bottom right molar appears to be decaying with surrounding erythema, swelling no active discharge at this time. There is some swelling noted to the inner cheek and on palpation it appears to be an abscess but it is not visualized well. The swelling does extend up to the front teeth with swelling noted to the corner of the right lips. Patient tolerating secretions well, talking in clear complete sentences. Patient able to swallow and breathe without difficulty. NECK: Supple. No lymphadenopathy CHEST: Clear to auscultation. No respiratory distress. HEART: Regular rate and rhythm. No murmur heard. Normal peripheral pulses. ABDOMEN: Soft, nontender, nondistended, normal active bowel sounds. EXTREMITIES: Normal range of motion. No edema. SKIN: Warm, dry, no rash. NEURO: No focal deficits. Alert and oriented x3. Course Vital Signs Vital signs: Vital Signs Temperature 36.9 C 11
== END 2020-09-09 09:54 | disposition home or self-care (01) ==
PROVIDERS: Emergency Provider Nurse Practitioner Family
DX: K04.7 Periapical abscess without sinus (principal); F17.210 Nicotine dependence, cigarettes, uncomplicated
CPT/HCPCS: 99213; G0463

== ENCOUNTER 2021-04-18 13:15 | Emergency (ER) | payer MEDICAID, SELFPAY ==
[2021-04-18 13:20] VITALS: BP 113/65; PULSE 78; RESP 16; TEMP 36.7; O2SAT 99
--- NOTE | 2021-04-18 13:57 | ED.URI ---
HPI - URI/Sore Throat General Chief Complaint: Upper Respiratory Infection Stated Complaint: cough runny nose headache Time Seen by Provider: 04/18/21 13:57 Source: patient and RN notes reviewed Mode of arrival: ambulatory Limitations: no limitations History of Present Illness HPI Narrative: 26-year-old female who is 6 months presents with concern for cough, chest congestion, runny nose, headache. Reports symptoms have been going on for several days. Reports she called her front end developer who told her to take Coricidin cough medicine and Benadryl at nighttime. Reports her front end developer told her if symptoms were not improving she should be seen. She denies fever, body aches, chills, sweats, loss of sense of taste or smell, shortness of breath, vomiting, diarrhea. Reports occasional nausea. 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 MD elicited complaint: cough Related Data Home Medications Medication Instructions Recorded Confirmed One Daily 04/18/21 Allergies Allergy/AdvReac Type Severity Reaction Status Date / Time No Known Allergies Allergy Verified 04/18/21 14:02 Review of Systems Review of Systems: Narrative: CONSTITUTIONAL: Denies malaise, chills, sweats, or fever. EYES: Denies visual changes, redness, or discharge. ENT: Reports rhinorrhea, congestion. Denies sinus pain, otalgia and sore throat. CARDIOVASCULAR: Denies chest pain, palpitations, or edema. RESPIRATORY: Reports cough. Denies dyspnea. GASTROINTESTINAL: Denies abdominal pain, nausea, vomiting, diarrhea SKIN: Denies rash or itching. MUSCULOSKELETAL: Denies myalgia. NEUROLOGIC: Reports headache. All systems reviewed & are unremarkable except as noted in HPI and below PMFSH Past Medical History Medical History (Updated 04/18/21 @ 14:18 by Rita Mccormick NP) Fracture of both arms Migraines Surgical History Surgical History History of tonsillectomy Family History Family History Grandparent Thyroid disease Grandparent Diabetes mellitus Social History Social History Smoking packs per day: 0.5 Smoking cigarettes per day: 10.0 Years smoked: 5 Smoking pack-years: 2.50 Smoking status: Current every day smoker Tobacco type: cigarettes Substance use: never Gender identity (if verbalized by the patient): Female Spiritual care concerns: No Comments At time of signature, agree with nursing past medical, surgical, social and family history. There is no relevant family history pertinent to the presenting complaint Exam Narrative: Exam Narrative: GENERAL: Well-appearing, well-nourished, and in no acute distress. HEAD: Normocephalic EYES: PERRLA, conjunctivae clear ENT: Nares clear, turbinates edematous and erythematous, clear discharge. Mucous membranes moist. TM pearly nelson with dull light reflex bilaterally; no tragal tenderness. Oropharynx not erythematous without lesions. Tonsils not enlarged and without exudate, no drooling, no hoarseness, no trismus, uvula midline. NECK: Supple. No lymphadenopathy CHEST: Clear to auscultation, breath sounds equal. No wheezing, rhonchi, rales, or stridor. No respiratory distress, speaks in full sentences. HEART: Regular rate and rhythm. No murmur heard. SKIN: Warm, dry, no rash. NEURO: Alert and oriented x3. PSYCH: Normal mood and affect Course Course Emergency Course: Patient is aware of diagnosis, understands and agrees to treatment plan. Anticipatory guidance given. Patient agrees to follow-up as directed and is aware of reasons to seek care at the emergency department. Portions of this record may have been created with voice recognition software Vital Signs Vital signs: Vital Signs Temperature 98.1 F 04/18/21 13:20 Pulse Rate 78 04/18/21 13:20 Respir
[2021-04-19 14:05] LABS: SARS-CoV-2 RNA PCR Negative
== END 2021-04-18 14:25 | disposition home or self-care (01) ==
PROVIDERS: Emergency Provider Nurse Practitioner
DX: O99.512 Diseases of the respiratory system complicating pregnancy, second trimester (principal); J06.9 Acute upper respiratory infection, unspecified; Z20.822 Contact with and (suspected) exposure to COVID-19; O99.332 Smoking (tobacco) complicating pregnancy, second trimester; F17.210 Nicotine dependence, cigarettes, uncomplicated
CPT/HCPCS: 87426; 99213; C9803; G0463; U0003; U0005

== ENCOUNTER 2021-06-15 10:11 | Observation (INO) | payer MEDICAID, SELFPAY ==
[2021-06-15 11:45] LABS: Add Urine Microscopic? YES; Appearance Urine Cloudy (Clear); Bacteria Urine 1+ /hpf; Bilirubin Urine Negative (Negative); Blood Urine Negative (Negative); Color Urine Yellow (Yellow); Glucose Urine UA Negative (Negative); Ketones Urine Negative (Negative); Leukocyte Esterase Ur 1+ LEU/UL (NEGATIVE); Nitrate Urine Negative (Negative); Protein Urine Negative (Negative); RBC Urine 0-2 /hpf (0-2); Specific Grav Ur 1.005 (1.001-1.035); Squamous Epithelial Cell Urine Few /hpf (Few); Urobilinogen Urine Negative mg/dL (<2.0)
[2021-06-15 11:49] VITALS: BMI 28.9
--- NOTE | 2021-06-15 11:52 | OBADM ---
This patient, Vini Jamison, admitted to the OB room Labor/Delivery/Recovery 103 for observation. Patient oriented to hospital policies and general routines including ID bracelet, bed and alarms, visiting hours, pain management, procedures, bathroom and other care routines, personal items, smoking policy, room service/diet, call light and visiting hours. Patient is encouraged to report perceived risks to care and to ask questions if she does not understand what she is told or what she should do.
--- NOTE | 2021-06-17 15:02 | P.PNOB_ITS ---
OB - Triage/Final Diagnosis Visit Information Date of evaluation: 06/15/21 Reason for evaluation: threatened labor Comments/Additional reasons for admission: I have assessed the risk for this patient, Vini Jamison, and determined that she would benefit from ob servation care. Evaluation Laboratory results: Laboratory Tests 06/15/21 11:11 Urine Color Yellow Urine Appearance Cloudy H Urine pH 7.0 Ur Specific [place] 1.005 Urine Protein Negative Urine Glucose (UA) Negative Urine Ketones Negative Ur Blood (Man) Negative Urine Nitrate Negative Urine Bilirubin Negative Urine Urobilinogen Negative Ur Leukocyte Esterase 1+ H Urine RBC 0-2 Urine WBC 4-6 H Ur Squamous Epith Cells Few Urine Bacteria 1+ H
== END 2021-06-15 12:27 | disposition home or self-care (01) ==
PROVIDERS: Advanced Practice Midwife; Admitting Provider Obstetrics & Gynecology; Visit Provider Obstetrics & Gynecology
DX: O47.1 False labor at or after 37 completed weeks of gestation (principal); Z3A.37 37 weeks gestation of pregnancy
CPT/HCPCS: 81001; 87086; 87088; G0378; G0379

== ENCOUNTER 2021-06-30 18:33 | Inpatient (IN) | payer MEDICAID, SELFPAY ==
[2021-06-30] VITALS (34 sets, daily range): BP systolic 96–139; BP diastolic 52–102; PULSE 58–102; RESP 18; TEMP 36.6–36.9; O2SAT 89–100; BMI 28.8
--- NOTE | 2021-06-30 18:33 | LDADM ---
This patient, Vini Jamison, was admitted to Labor/Delivery/Recovery 107 on 06/30/21 at 18:33. Plans for labor, pain management and were discussed with patient. Patient/family oriented to hospital policies and general routines including ID bracelet, bed and alarms, visiting hours, pain management, procedures, bathroom and other care routines, personal items, smoking policy, room service/diet and guest tray routines, infant security routines, and visiting hours. Patient/Family are encouraged to report perceived risks to care and to ask questions if they do not understand what they are told or what they should do. See OBIX for further documentation.
[2021-06-30] MEDS: LACTATED RINGERS 1,000 ML 125 ML IV CONT (19:27)
[2021-06-30] MEDS: OXYTOCIN 30 UNITS/NS 500 ML 30 UNITS/500 ML BAG IV CONT (19:27)
[2021-06-30 19:32] LABS: Basophils Absolute Auto 0.1 K/mm3 (0.0-0.1); Basophils Percent Auto 0.3 % (0.2-1.2); Eosinophils Absolute Auto 0.2 K/mm3 (0-0.3); Eosinophils Percent Auto 0.9 % (0-4.4); Hematocrit 38.7 % (37.0-47.0); Hemoglobin 12.9 g/dL (12.0-15.0); Immature Granulocyte Absolute 0.11 K/mm3 (0.00-0.031); Immature Granulocyte Percent A 0.6 % (0-0.5); Lymphocytes Absolute Auto 3.25 K/mm3 (0.9-3.2); Lymphocytes Percent Auto 18.7 % (18.3-44.2); Mean Corpuscular HGB Conc 33.3 g/dl (32-36); Mean Corpuscular Hemoglobin 32.7 pg (26-34); Mean Corpuscular Volume 98.2 fl (80-100); Monocytes Absolute Auto 1.1 K/mm3 (0.1-0.6); Monocytes Percent Auto 6.3 % (2.6-8.5); Neutrophils Absolute Auto 12.8 K/mm3 (1.3-6.7); Neutrophils Percent Auto 73.2 % (45.5-73.1); Platelet Count Result 341 k/mm3 (150-375); Red Blood Count 3.94 M/mm3 (4.2-5.4); Red Cell Distribution Width 12.9 % (11.5-14.5); White Blood Count 17.4 K/mm3 (4.5-10.0)
--- NOTE | 2021-06-30 20:43 | WPDANESEPP ---
Anes - Eval Pre Procedure Date/Time: 06/30/21 20:43 Pre Op Diagnosis: IOL Patient Data Age: 26 Gender: F Height: Weight: Last Vital Signs Temp 98.4 F 06/30/21 20:11 Pulse 75 06/30/21 20:31 Resp 18 06/30/21 20:30 BP 99/56 L 06/30/21 20:31 Allergies Allergy/AdvReac Type Severity Reaction Status Date / Time No Known Allergies Allergy Verified 06/15/21 11:57 Home Medications Medication Instructions Recorded Confirmed Type PNV cmb#95-ferrous fumarate-FA 1 tablet PO DAILY 06/05/21 06/15/21 History [] Laboratory Tests 06/30/21 06/30/21 06/30/21 19:15 19:15 19:15 WBC 17.4 K/mm3 H K/mm3 (4.5-10.0) RBC 3.94 M/mm3 L M/mm3 (4.2-5.4) Hgb 12.9 g/dL D g/dL (12.0-15.0) Hct 38.7 % % (37.0-47.0) MCV 98.2 fl fl (80-100) MCH 32.7 pg pg (26-34) MCHC 33.3 g/dl g/dl (32-36) RDW 12.9 % % (11.5-14.5) Plt Count 341 k/mm3 k/mm3 (150-375) MPV 10.0 fl fl (7.4-10.4) Immature Gran % (Auto) 0.6 % H % (0-0.5) Neut % (Auto) 73.2 % H % (45.5-73.1) Lymph % (Auto) 18.7 % % (18.3-44.2) [place] % (Auto) 6.3 % % (2.6-8.5) Eos % (Auto) 0.9 % % (0-4.4) Baso % (Auto) 0.3 % % (0.2-1.2) Lymph # (Auto) 3.25 K/mm3 H K/mm3 (0.9-3.2) [place] # (Auto) 1.1 K/mm3 H K/mm3 (0.1-0.6) Eos # (Auto) 0.2 K/mm3 K/mm3 (0-0.3) Baso # (Auto) 0.1 K/mm3 K/mm3 (0.0-0.1) Abs Immat Gran (auto) 0.11 K/mm3 H K/mm3 (0.00-0.031) Absolute Neuts (auto) 12.8 K/mm3 H K/mm3 (1.3-6.7) Absolute Nucleated RBC 0.0 K/mm3 K/mm3 (0.0-0.012) Nucleated RBC % 0.0 % % (0.0-0.2) RPR Pending Blood Type B Positive Antibody Screen Negative Patient hx anesthesia problems: none Family hx anesthesia problems: none PMFSH Past Medical History Medical History Abdominal pain Fracture of both arms Migraines Overweight (BMI 25.0-29.9) Smoker Surgical History Surgical History History of tonsillectomy Family History Family History Grandparent Thyroid disease Grandparent Diabetes mellitus Social History Social History Smoking packs per day: 0.5 Smoking cigarettes per day: 10.0 Years smoked: 5 Smoking pack-years: 2.50 Smoking status: Current every day smoker Tobacco type: cigarettes Substance use: former Gender identity (if verbalized by the patient): Female Spiritual care concerns: No Exam Day of Procedure 06/30/21 20:43 Patient weight: obese Airway: Mallampati scale class II Neurological: alert and oriented
[2021-06-30] MEDS: fentaNYL CITRATE INJ (*CRX) 100 MCG/2 ML VIAL 50 MCG IV PUSH (22:54)
[2021-07-01] VITALS (192 sets, daily range): BP systolic 80–123; BP diastolic 21–86; PULSE 41–143; RESP 16–20; TEMP 36.3–36.8; O2SAT 90–100
[2021-07-01] MEDS: LACTATED RINGERS 1,000 ML 125 ML IV CONT (03:45)
[2021-07-01 07:52] LABS: Amphetamine Screen Urine Negative (Negative); Barbiturate Screen Urine Negative (Negative); Benzodiazepines Screen Urine Negative (Negative); Cannabinoid Screen Urine Positive (Negative); Cocaine Screen Urine Negative (Negative); Methadone Screen Urine Negative (Negative); Opiate Screen Urine Negative (Negative); Phencyclidine Screen Urine Negative (Negative)
--- NOTE | 2021-07-01 08:23 | WPDOBADMIT ---
Obstetrics - Admit Note Admission Note: record reviewed. No pertinent additions to the history and/or any subsequent changes in the physical findings that are not consistent with the expected course of the were found. IOL, SVE 8-9/80/-1 AROM small amount of clear odorless fluid Additions to the history and/or subsequent changes in the physical findings follow. None.
--- NOTE | 2021-07-01 09:58 | P.PCNOB_ITS ---
OB - Delivery Note Procedure Delivery date: 07/01/21 Procedure: vaginal deivery Intrapartal events: None Induction method: AROM and per pitocin protocol Delivery monitor: external FHT and external uterine Route of delivery: Laceration Description: None Specimen: No Quantitative Blood Loss (ml): 35 Anesthesia type: Epidural Disposition: floor [place] Baby Date of : 07/01/21 Time of : 09:45 Weeks of gestation at delivery: 39 gender: Male Weight (pounds): 7 Weight (ounces): 1 presentation: vertex position: Left Occiput Anterior Placenta delivery description: Spontaneous cord vessel description: 3 Vessels, Nuchal Cord and Clamped/Cut score one minute: 9 score five minutes: 9 Narrative: mother and baby skin to skin in stable condition
[2021-07-01] MEDS: OXYTOCIN 30 UNITS/NS 500 ML 30 UNITS/500 ML BAG 125 UNITS IV CONT (10:20)
[2021-07-01] MEDS: WITCH HAZEL 40 PADS 1 PAD TOPICAL (12:27)
[2021-07-01] MEDS: BENZOCAINE 20% AER SPR (*SP) 56 GM CAN 1 SPRAY TOPICAL (12:27)
[2021-07-02 04:20] VITALS: BP 125/76; PULSE 74; RESP 16; TEMP 36.2; O2SAT 100
--- NOTE | 2021-07-02 05:06 | PC.NURSE ---
0500 on 07/02/2021 Patient viewed the discharge video Mother & Baby Care, The First Two Weeks . Patient was given the opportunity and encouraged to ask questions. Patient verbalized understanding of information shared and has been given the mother/baby guide for home reference.
[2021-07-02] MEDS: DOCUSATE SODIUM 100 MG CAPSULE PO (08:21)
[2021-07-02] MEDS: IBUPROFEN 600 MG TABLET PO (08:21)
[2021-07-02] MEDS: MULTIVIT/MIN/PREN/FOL AC/IRON TABLET 1 TAB PO (08:21)
[2021-07-02 09:00] VITALS: BP 109/72; PULSE 69; PULSE 74; RESP 14; RESP 16; TEMP 36.8; O2SAT 100
--- NOTE | 2021-07-02 09:43 | PM.OBPNVD ---
OB - PN: Subj Subjective Date/time seen: 07/02/21 09:43 Patient comments: no complaints baby status: doing well OB - PN: Obj Data Labs CBC & Chem 7: 07/02/21 04:53 Labs: Laboratory Results - last 24 hr 07/02/21 04:53 Hgb 12.0 Hct 35.0 L OB - PN A/P Plan day: 1 Plan: routine care and discharge home Time Spent With Patient Time: Total time spent is greater than 50% in coordination of care (as documented) at patient's floor/unit and/or counseling patient: Review of Systems Review of Systems: All systems reviewed & are unremarkable except as noted in HPI and below Exam Const: General: cooperative, healthy appearing and comfortable
--- NOTE | 2021-07-02 09:44 | P.DS_ITS ---
DS: Admitting Diagnosis Admitting Diagnosis IOL OB - DS: Summary OB Procedures : None OB Procedures Intrapartum: Spontaneous Vag Delivery OB Procedures: : None Time Spent with Patient Time attestation: Total time spent providing and/or coordinating discharge services: DS: Data Data Completed and Pending Labs on day of discharge: Labs from last 24 hours 07/02/21 04:53 Hgb 12.0 Hct 35.0 L Discharge Plan Discharge Attending physician on discharge: Rod Gonzalez Discharging Clinician: Christina Castillo Patient Disposition: Home, Self-Care Activity: pelvic rest Diet: regular Patient Instructions: Antibiotic Form Stand Alone Forms: General Discharge Information Follow-up/Referrals: Christina Castillo CNM [Certified Nurse Semi Conductor Assembler] - 4 Weeks Discharge Medications: New ibuprofen 600 mg Tablet 600 mg PO Q6H PRN (Reason: Cramping) Qty: 30 RF: 0 Continued PNV cmb#95-ferrous fumarate-FA [] 28 mg iron- 800 mcg Tablet 1 tablet PO DAILY RF: 0 Date of admission: 06/30/21 18:33 Primary Care Provider: PHYSICIAN,PATCHER BOWLING BALL Admitting Provider: Rod Gonzalez Attending physician on admission: Rod Gonzalez Condition: Stable
--- NOTE | 2021-07-02 11:36 | PCCCNOTE ---
Received referral: Mother and baby both positive for THC on UDS. Met with Mother and Father of Baby at bedside. Mother confirms THC use during for pain. She states obtaining THC from local dispensary. She lives with Father of Baby and 1 year old. She will return home with them along with at discharge. She states having all needed items to care for at discharge home. She states Father of Baby as well as his family and her father are supportive. She denies any history with DCFS. She is current with [facility]. Reported pt. situation to DCFS; the information has been documented and will be kept on file. It does not meet criteria for investigation. Intake#[id number]. Provided pt. with additional resources and she accepted same. Encouraged she contact any/all of interest. Nursing aware of above. No further care coordination needs indicated at this time.
[2021-07-04 10:30] LABS: Rapid Plasma Reagin Non-Reactive (NonReactive)
[2021-07-05 09:54] VITALS: BP 111/68; PULSE 68; RESP 20; TEMP 37.2; O2SAT 99
== END 2021-07-02 13:45 | disposition home or self-care (01) | DRG 560 ==
LOC: ANHLDR 18:44 → ANHOB2 07-01 13:42
PROVIDERS: Advanced Practice Midwife; Admitting Provider Obstetrics & Gynecology; Visit Provider Obstetrics & Gynecology
DX: O99.334 Smoking (tobacco) complicating childbirth (principal); F17.210 Nicotine dependence, cigarettes, uncomplicated; O69.81X0 Labor and delivery complicated by cord around neck, without compression, not applicable or unspecified; O76 Abnormality in fetal heart rate and rhythm complicating labor and delivery; Z3A.39 39 weeks gestation of pregnancy; Z37.0 Single live birth
CPT/HCPCS: 36415; 80307; 85014; 85018; 85025; 86592; 86850; 86900; 86901; A9270; J2590; J3010; J7120

== ENCOUNTER → 2021-08-15 05:18 | Outpatient (CLI) | payer MEDICAID, SELFPAY ==
[2021-08-16 19:26] LABS: SARS-CoV-2 RNA PCR Negative
== END ==
PROVIDERS: Obstetrics & Gynecology; Visit Provider Obstetrics & Gynecology
DX: Z20.822 Contact with and (suspected) exposure to COVID-19 (principal)
CPT/HCPCS: C9803; U0003; U0005

== ENCOUNTER 2021-08-18 | Day surgery (SDC) | payer MEDICAID, SELFPAY ==
[2021-08-09 10:58] VITALS: BMI 25.4
[2021-08-18] VITALS (10 sets, daily range): BP systolic 103–118; BP diastolic 64–80; PULSE 54–86; RESP 14–18; TEMP 36.2–36.3; O2SAT 98–100; BMI 25.4
--- NOTE | 2021-08-18 08:46 | WPDANESEPPF ---
Anes - Initial Pre Proc Eval Procedure: Operation Date: 08/18/21 09:45 Proposed Procedures p Laparoscopic Bilateral Salpingectomy - Rod Gonzalez MD Date/Time: 08/18/21 08:46 Surgeon: Rod Gonzalez MD Pre Op Diagnosis: desires sterilization Patient Data Age: 26 Gender: F Height: 1.63 m Weight: 67.13 kg Allergies Allergy/AdvReac Type Severity Reaction Status Date / Time No Known Allergies Allergy Verified 08/09/21 10:57 Home Medications Medication Instructions Recorded Confirmed Type No Home Medications 08/09/21 08/09/21 History Patient hx anesthesia problems: none Family hx anesthesia problems: none Results Review: All pre-operative results and documents have been reviewed as part of the pre-operative evaluation. PMFSH Past Medical History Medical History Abdominal pain Fracture of both arms Migraines Overweight (BMI 25.0-29.9) Smoker Surgical History Surgical History History of tonsillectomy Family History Family History Grandparent Thyroid disease Grandparent Diabetes mellitus Social History Social History Smoking packs per day: 0.5 Smoking cigarettes per day: 10.0 Years smoked: 11 Smoking pack-years: 5.50 Smoking status: Current every day smoker Tobacco type: cigarettes Alcohol intake: never Substance use: current Substance use type: marijuana Other substance usage details: FLOWER Last use: 08/08/21 Living arrangements: with family Gender identity (if verbalized by the patient): Female Spiritual care concerns: No Anes - Eval Final PreProcedure Day of Procedure 08/18/21 08:46 Patient weight: overweight Heart: regular rate and rhythm Lungs: clear to auscultation Airway: Mallampati scale class II and special considerations poor dentition Neurological: alert and oriented Last oral intake: >/= 8 hours ASA classification: II Emergent: no Anesthetic plan: proceed Anesthesia type and monitoring: general ETT and standard monitoring Results Review: All pre-operative results and documents have been reviewed as part of the pre-operative evaluation. Informed Consent: The patient's anesthetic plan and its attendant risks and benefits were discussed with the patient/family/POA. Questions were solicited and answers provided to the satisfaction of the patient/family/POA.
[2021-08-18] MEDS: ACETAMINOPHEN 500 MG TABLET 1000 MG PO (09:18)
[2021-08-18] MEDS: KETOROLAC 15 MG/ML VIAL (*BKC) IV PUSH (09:19)
[2021-08-18] MEDS: LACTATED RINGERS 1,000 ML 30 ML IV CONT ×2 (09:30→10:52)
--- NOTE | 2021-08-18 09:53 | WPDHPUPDATE1 ---
History and Physical Update Update Date/Time: 08/18/21 09:53 History and Physical has been reviewed, including an updated exam of the patient. There are NO changes in the patient's condition. Risks, benefits, and alternatives have been discussed and questions answered. Patient agrees to proceed with procedure.
--- NOTE | 2021-08-18 10:40 | W.PM.PROC2 ---
Procedure Note - Detailed Date of Procedure 08/18/21 Pre-op Diagnosis desires sterilization Post-op Diagnosis same Procedure Performed Laparoscopic bilateral salpingectomy Surgeon Rod Gonzalez MD Anesthesia general Indications Unwanted fertility Findings Normal pelvic anatomy Description of Procedure The patient was taken the operating room. She was prepped and draped in the dorsal lithotomy position after induction of general anesthesia. A 5 mm skin incision was made in the left upper quadrant of the abdominal skin. A 5 mm trocar was inserted the intra-abdominal cavity under direct visualization of the scope. Pneumoperitoneum was achieved. A 5 mm trocar was inserted in the left lower quadrant identical fashion. A 5 mm infraumbilical trocar was inserted in identical fashion as well. The bilateral fallopian tubes were removed. This was done by using a LigaSure cautery. The mesosalpinx adjacent to the tube was cauterized transected with LigaSure. This was initiated in the area the ovary and in a stepwise fashion moved medially to the area of the cornu of the uterus. Once there the fallopian tube was cauterized and transected. This was done in identical fashion on each side. The fallopian tubes were taken out through the left lower quadrant trocar site. The pneumoperitoneum was reduced. The trocars removed. The skin was closed with subcuticular 4 Monocryl and covered with Dermabond. She was taken to cover stable condition. Sponge lap and needle counts were correct x2. Estimated Blood Loss 5 Drains No Packing No Pathology yes Complications No immediate complications Condition stable Disposition PACU
[2021-08-18] MEDS: fentaNYL CITRATE INJ (*CRX) 100 MCG/2 ML VIAL 25 MCG IV PUSH ×4 (11:10→11:53)
[2021-08-18] MEDS: oxyCODONE HCL (*CRX) 5 MG TAB IR PO (13:12)
== END 2021-08-18 13:58 | disposition home or self-care (01) ==
PROVIDERS: Visit Provider Obstetrics & Gynecology
PROC: (CPT 49320; principal; 2021-08-18 09:45)
DX: Z30.2 Encounter for sterilization (principal); F17.210 Nicotine dependence, cigarettes, uncomplicated; F12.90 Cannabis use, unspecified, uncomplicated
CPT/HCPCS: 58661; 88302; A9270; J1100; J1885; J2250; J2270; J2405; J2704; J2710; J2765; J3010; J7030; J7120

== ENCOUNTER 2022-09-07 11:49 | Emergency (ER) | payer MEDICAID, SELFPAY ==
[2022-09-07 11:58] VITALS: BP 115/98; PULSE 84; RESP 16; TEMP 37.1; O2SAT 100
--- NOTE | 2022-09-07 12:03 | ED.GENADULT ---
HPI - General Adult General Chief complaint: Upper Respiratory Infection Stated complaint: chest pain hurting when breathing Time Seen by Provider: 09/07/22 12:05 Source: patient Mode of arrival: ambulatory Limitations: no limitations History of Present Illness HPI narrative: 27 y/o female presented for c/o mid chest pain for 5 days after moving a dresser. Endorses pain is constant, dull pain, feels sharp with deep breaths and with movement or laying down. Taking Tylenol with temporary relief. 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 Denies associated cough, shortness of breath, nausea, vomiting, diarrhea, fevers or chills. Related Data Allergies Allergy/AdvReac Type Severity Reaction Status Date / Time No Known Allergies Allergy Verified 09/07/22 12:07 Review of Systems Review of Systems: CONSTITUTIONAL: Denies body aches, fever, chills, or sweats. EYES: Denies visual changes, redness, or discharge. CARDIOVASCULAR: Denies chest pain, palpitations, or edema. RESPIRATORY: Denies cough or dyspnea. GASTROINTESTINAL: Denies abdominal pain, nausea, vomiting, or diarrhea. SKIN: Denies rash, itching, or wounds. MUSCULOSKELETAL:reports mid chest pain NEUROLOGIC: Denies headache, numbness, tingling, or weakness. All systems reviewed & are unremarkable except as noted in HPI and below PMFSH Past Medical History Medical History Abdominal pain Fracture of both arms Migraines Overweight (BMI 25.0-29.9) Smoker Surgical History Surgical History History of tonsillectomy Family History Family History Grandparent Thyroid disease Grandparent Diabetes mellitus Social History Social History Smoking packs per day: 0.5 Smoking cigarettes per day: 10.0 Years smoked: 11 Smoking pack-years: 5.50 Smoking status: Current every day smoker Tobacco type: cigarettes Alcohol intake: never Substance use: current Substance use type: marijuana Other substance usage details: FLOWER Last use: 08/08/21 Gender identity (if verbalized by the patient): Female Spiritual care concerns: No Comments At time of signature, I have reviewed and agree with nursing past medical, surgical, social and family history unless otherwise noted. Please see nursing chart for further information. There is no relevant family history pertinent to the presenting complaint Exam Narrative: GENERAL: Well-appearing ENT: Mucous membranes pink and moist. CHEST: Clear to auscultation. HEART: Regular rate and rhythm. No murmur appreciated. Normal peripheral pulses. ABDOMEN: Soft, nontender, nondistended, normal active bowel sounds. MUSCULOSKELETAL: Mid sternal and right sternal border chest wall tenderness with palpation EXTREMITIES: Normal range of motion. No edema. SKIN: Warm, dry, no rash. Capillary refill normal. Normal skin turgor. NEURO: No focal deficits. Alert and oriented x3. Gait steady. Course Course Emergency Course: Patient is aware of diagnosis, understands and agrees to treatment plan. Anticipatory guidance given. Patient agrees to follow-up as directed and is aware of reasons to seek care at the emergency department. Portions of this record may have been created with voice recognition software Level of Care: Express Care Visit Vital Signs Vital signs: Vital Signs Temperature 98.7 F 09/07/22 11:58 Pulse Rate 84 09/07/22 11:58 Respiratory Rate 16 09/07/22 11:58 Blood Pressure 115/98 H 09/07/22 11:58 Pulse Oximetry 100 09/07/22 11:58 Oxygen Delivery Room Air 09/07/22 11:58 Temperature 98.7 F 09/07/22 11:58 Pulse Rate 84 09/07/22 11:58 Respiratory Rate 16 09/07/22 11:58 Blood Pressure 115/98 H 09/07/22 11:58 Pulse Oximetry 100 09/07/22 11:58 Oxygen Delivery Room Air 09/07/22 11:58
== END 2022-09-07 12:17 | disposition home or self-care (01) ==
PROVIDERS: Emergency Provider Nurse Practitioner Family
DX: R07.89 Other chest pain (principal); F17.210 Nicotine dependence, cigarettes, uncomplicated
CPT/HCPCS: 99213; G0463

== ENCOUNTER 2023-11-15 16:59 | Emergency (ER) | payer MEDICAID, SELFPAY ==
[2023-11-15 17:03] VITALS: BP 132/91; PULSE 100; RESP 18; TEMP 37.1; O2SAT 100
--- NOTE | 2023-11-15 17:35 | ED.DENTAL ---
HPI - Dental/Oral General Chief complaint: Dental/Oral Stated complaint: Swollen Jaw/teeth Time Seen by Provider: 11/15/23 17:20 Source: patient, RN notes reviewed and old records reviewed Mode of arrival: ambulatory Limitations: no limitations History of Present Illness HPI Narrative: 28 year old female who [facility] to [facility] with complaints of dental pain with bottom teeth back molars on the right side broken with decay noted, facial swelling to right side of face and acute pain.since yesterday. Patient reports that she has been taking Ibuprofen and she had one left over Hydrocodone that she took for the pain with minimal pain relief. Patient has numerous broken and decayed teeth noted. Patient reports no difficulty with her breathing or any difficulty swallowing.Patient has used ice and heat and also Oragel. MD Complaint: tooth pain Location: Tooth # (28,29,30) Onset (ago): day(s) (1) Severity: moderate Severity scale (1-10): 5 Treatment prior to arrival: topical analgesic, oral analgesic and other (ice,heat) Related Data Allergies Allergy/AdvReac Type Severity Reaction Status Date / Time No Known Allergies Allergy Verified 11/15/23 17:07 Review of Systems Review of Systems: CONSTITUTIONAL: Denies fever, chills, or sweats. ENT: Denies rhinorrhea, congestion, sore throat, or otalgia. Reports dental pain right lower molars broken off with facial swelling right side of face CARDIOVASCULAR: Denies chest pain, palpitations, or edema. RESPIRATORY: Denies cough or dyspnea. SKIN: Denies rash or itching. MUSCULOSKELETAL: Denies myalgia. NEUROLOGIC: Denies headache All systems reviewed & are unremarkable except as noted in HPI and below PMFSH Past Medical History Medical History Abdominal pain Fracture of both arms Migraines Overweight (BMI 25.0-29.9) Smoker Surgical History Surgical History (Updated 11/16/23 @ 14:12 by Tiffanie Montanez NP) H/O tubal ligation History of tonsillectomy Family History Family History Grandparent Thyroid disease Grandparent Diabetes mellitus Social History Social History Smoking packs per day: 0.5 Smoking cigarettes per day: 10.0 Years smoked: 11 Smoking pack-years: 5.50 Smoking status: Current every day smoker Tobacco type: cigarettes Alcohol intake: never Substance use: current Substance use type: marijuana Other substance usage details: FLOWER Last use: 08/08/21 Living arrangements: with family Gender identity (if verbalized by the patient): Female Spiritual care concerns: No Comments At time of signature, agree with nursing past medical, surgical, social and family history. There is no relevant family history pertinent to the presenting complaint Exam Narrative: GENERAL: Well-appearing, well-nourished, and in no acute distress. HEAD: Normocephalic, atraumatic. EYES: PERRLA and EOMI. ENT: Nares clear, no rhinorrhea or epistaxis. Mucous membranes moist. Missing teeth, broken teeth, caries.Right bottom molars broken off with caries, gums swollen red, facial swelling right side of face, no trismus or Dm angina noted, respirations even and nonlabored. NECK:Supple no lymphadenopathy CHEST: Clear to auscultation. No respiratory distress.SAO2 100% on room air HEART: Regular rate and rhythm. No murmur heard. Normal peripheral pulses. SKIN: Warm, dry, no rash. NEURO: No focal deficits. Alert and oriented x3. Course Course Emergency Course: Patient is aware of diagnosis, understands and agrees to treatment plan. Anticipatory guidance given. Patient agrees to follow-up as directed and is aware of reasons to seek care at the emergency department. Portions of this record may have been created with voice recognition software Level of Care: Express Care Visit Vital Signs Vital signs: Vital Signs Temper
== END 2023-11-15 18:00 | disposition home or self-care (01) ==
PROVIDERS: Emergency Provider Registered Nurse
DX: K04.7 Periapical abscess without sinus (principal); F17.210 Nicotine dependence, cigarettes, uncomplicated; F12.90 Cannabis use, unspecified, uncomplicated
CPT/HCPCS: 99213; G0463

== ENCOUNTER 2024-08-11 12:22 | Emergency (ER) | payer MEDICAID, SELFPAY ==
[2024-08-11 12:25] VITALS: BP 104/65; PULSE 60; RESP 18; TEMP 36.8; O2SAT 100
--- NOTE | 2024-08-11 12:35 | ED.URI ---
HPI - URI/Sore Throat General Chief Complaint: Upper Respiratory Infection Stated Complaint: cough/nose/head congestion Source: patient Mode of arrival: ambulatory Limitations: no limitations History of Present Illness HPI Narrative: 29 y/o female presented for c/o cough, nasal congestion, headache, ear pressure. Onset one week. Reports chest feels restricted with deep breaths. Denies sob, wheezing, n/v/d/f/c. Taking otc meds like tylenol and robitussin for symptoms. Tested negative for covid at home. smokes 1/2ppd Related Data Allergies Allergy/AdvReac Type Severity Reaction Status Date / Time No Known Allergies Allergy Verified 08/11/24 12:27 Review of Systems Review of Systems: CONSTITUTIONAL: Denies body aches, fever, chills, or sweats. EYES: Denies visual changes, redness, or discharge. ENT: reports rhinorrhea, congestion, otalgia. CARDIOVASCULAR: Denies chest pain, palpitations, or edema. RESPIRATORY: Reports cough, denies sob, wheezing. MUSCULOSKELETAL: Denies back pain, joint pain, or myalgia. NEUROLOGIC: Denies headache, numbness, tingling, or weakness. All systems reviewed & are unremarkable except as noted in HPI and below PMFSH Past Medical History Medical History Abdominal pain Fracture of both arms Migraines Overweight (BMI 25.0-29.9) Smoker Surgical History Surgical History H/O tubal ligation History of tonsillectomy Family History Family History Grandparent Thyroid disease Grandparent Diabetes mellitus Social History Social History Smoking packs per day: 0.5 Smoking cigarettes per day: 10.0 Years smoked: 11 Smoking pack-years: 5.50 Smoking status: Current every day smoker Tobacco type: cigarettes Alcohol intake: never Substance use: current Substance use type: marijuana Other substance usage details: FLOWER Last use: 08/08/21 Living arrangements: with family Gender identity (if verbalized by the patient): Female Spiritual care concerns: No Comments At time of signature, I have reviewed and agree with nursing past medical, surgical, social and family history unless otherwise noted. Please see nursing chart for further information. There is no relevant family history pertinent to the presenting complaint Exam Narrative: GENERAL: Well-appearing, in no acute distress. EYES: EOMI. No redness or drainage. Conjunctivae normal. ENT: Mucous membranes pink and moist. No rhinorrhea. TMs normal with clear effusion bilaterally. Throat normal. Uvula midline. NECK: Normal AROM. Supple. CHEST: No respiratory distress. Lungs clear to all ramsey. HEART: Regular rate and rhythm. No murmur appreciated. ABDOMEN: Soft, nontender, nondistended, normal active bowel sounds. SKIN: Warm, dry, no rash. Capillary refill normal. Normal skin turgor. NEURO: Alert and oriented x3. Gait steady. Course Course Emergency Course: Patient is aware of diagnosis, understands and agrees to treatment plan. Anticipatory guidance given. Patient agrees to follow-up as directed and is aware of reasons to seek care at the emergency department. Portions of this record may have been created with voice recognition software Level of Care: Express Care Visit MDM - URI/Sore Throat MDM Narrative Medical decision making narrative: Discussed physical exam findings. Advised supportive measures and signs/symptoms to go to the ER. Pt is appropriate for outpt treatment and f/u. Differential Diagnosis Differential diagnosis: Likely upper respiratory infection, otitis media, sinusitis, viral infection, bronchitis, influenza and pharyngitis Discharge Plan Discharge Clinical Impression: Upper respiratory infection Patient Disposition: Home, Self-Care Condition: Stable Instructions: Antibiot
== END 2024-08-11 12:45 | disposition home or self-care (01) ==
PROVIDERS: Emergency Provider Nurse Practitioner Family
DX: J06.9 Acute upper respiratory infection, unspecified (principal); F17.210 Nicotine dependence, cigarettes, uncomplicated
CPT/HCPCS: 99213; G0463